=== PATIENT | female | born 1950 | race Caucasian/White ===

== ENCOUNTER 2016-07-10 11:03 | Emergency (ER) | payer OTHER ==
[~2016-07-10] VITALS: Ht 160 cm; Wt 93.7 kg
[~2016-07-10 11:03] MED LIST: ALLEGRA60 MG PO; ALLERGY RELIE15.8 ML BOTH NARES; BUTALB-ACETAMI1 EAC2 PO; COLACE100 MG PO; CRESTOR10 MG PO; KLOR-CON M2020 MEQ PO; LEVAQUIN500 MG PO; LEVOTHROID150 MCG PO; LEVOTHYROXINE150 MCG PO; LOSARTAN POTAS100 MG PO; MONTELUKAST SOD10 MG PO; PROVENTIL HFA6.7 GM IH; SIMVASTATIN40 MG PO; STOOL SOFTENER100 MG PO; TRIAMTERENE-HC1 EAC1 PO; TRIAMTERENE-HC1 EACH PO; VENTOLIN HFA18 GM IH; VERAPAMIL ER200 MG PO; VERAPAMIL ER300 MG PO; VITAMIN B-1250 MC3 PO; ZESTRIL,PRINIVIL5 MG PO
[2016-07-10] MEDS ORDERED: BIAXIN500 MG PO (14:57)
[2016-07-10] MEDS ORDERED: LORTAB 5-325 M1 EACH PO (14:57)
[2016-07-10] MEDS ORDERED: MEDROL DOSEPAK4 MG PO (14:57)
[2016-07-10 15:20] VITALS: BP 110/63
== END 2016-07-10 15:40 | disposition home or self-care (01) ==
LOC: EME 11:03
DX: J01.30 Acute sphenoidal sinusitis, unspecified (principal); Z88.0 Allergy status to penicillin; Z88.3 Allergy status to other anti-infective agents; Z88.6 Allergy status to analgesic agent; Z88.8 Allergy status to other drugs, medicaments and biological substances; Z88.7 Allergy status to serum and vaccine
CPT/HCPCS: 70486; 99281; 99283; J7512

== ENCOUNTER 2016-08-12 16:36 | Emergency (ER) | payer OTHER ==
[~2016-08-12] VITALS: Ht 160 cm; Wt 93.0 kg
[~2016-08-12 16:36] MED LIST changes: +BIAXIN500 MG PO; +LORTAB 5-325 M1 EACH PO; +MEDROL DOSEPAK4 MG PO
[2016-08-12 20:51] VITALS: BP 128/74
== END 2016-08-12 20:52 | disposition home or self-care (01) ==
LOC: EME 16:36
DX: S00.81XA Abrasion of other part of head, initial encounter (principal); S00.33XA Contusion of nose, initial encounter; S80.212A Abrasion, left knee, initial encounter; S60.414A Abrasion of right ring finger, initial encounter; W18.09XA Striking against other object with subsequent fall, initial encounter; Y92.481 Parking lot as the place of occurrence of the external cause; I10 Essential (primary) hypertension; E78.5 Hyperlipidemia, unspecified
CPT/HCPCS: 70450; 70486; 73130; 73564; 99281; 99284

== ENCOUNTER 2017-05-24 15:37 | Emergency (ER) | payer OTHER ==
[~2017-05-24] VITALS: Ht 160 cm; Wt 99.1 kg
[2017-05-24] MEDS ORDERED: AFRIN,GENASAL D15 ML BOTH NARES (16:13)
[2017-05-24] MEDS ORDERED: AZITHROMYCIN250 MG PO (16:13)
[2017-05-24 16:29] VITALS: BP 155/69
== END 2017-05-24 16:32 | disposition home or self-care (01) ==
LOC: EME 15:37
DX: J20.9 Acute bronchitis, unspecified (principal); R04.0 Epistaxis; I48.91 Unspecified atrial fibrillation; Z79.01 Long term (current) use of anticoagulants; E11.9 Type 2 diabetes mellitus without complications; E78.5 Hyperlipidemia, unspecified; I10 Essential (primary) hypertension; Z85.41 Personal history of malignant neoplasm of cervix uteri; Z88.0 Allergy status to penicillin; Z88.6 Allergy status to analgesic agent; Z88.8 Allergy status to other drugs, medicaments and biological substances
CPT/HCPCS: 99281; 99284